=== PATIENT | male | born 1970 | race Hispanic/Latino ===

== ENCOUNTER 2017-10-06 01:15 | Emergency (ER) | payer BC, SELFPAY ==
[2017-10-06] MEDS ORDERED: METHYLPREDNISOLONE 125 MG INJ ONE (01:49)
[2017-10-06] MEDS ORDERED: FAMOTIDINE 20 MG/2 ML VIAL IV ONE (01:50)
[2017-10-06] MEDS ORDERED: DIPHENHYDRAMINE 50 MG/ML VIAL ONE (01:50)
--- NOTE | 2017-10-06 02:15 | ER ---
Nurse's Notes [facility] Name: Torrey Rodriguez Age: 47 yrs Sex: Male : 1970 Arrival Date: 10/06/2017 Time: 01:18 Bed 17 Private MD: Apple Lozano Diagnosis: Urticaria Presentation: 10/06 01:26 Presenting complaint: Patient states: "I am having an allergic reaction, I have this bs1 rash all over that started around 10pm last night and I took Benadryl about 40 minutes ago.". Transition of care: patient was not received from another setting of care. Onset: The symptoms/episode began/occurred last night. Anaphylaxis evaluation, no signs or symptoms of anaphylaxis were noted. Onset of symptoms was October 05, 2017 at 22:00. Risk Assessment: Do you want to hurt yourself or someone else? Patient reports no desire to harm self or others. Initial Sepsis Screen: Does the patient meet any 2 criteria? No. Patient's initial sepsis screen is negative. Does the patient have a suspected source of infection? No. Patient's initial sepsis screen is negative. Care prior to arrival: Medication(s) given: Benadryl capsules. 01:26 Method Of Arrival: Ambulatory bs1 01:26 Acuity: JULIAN 3 bs1 Historical: - Allergies: :29 No Known Allergies; bs1 - Home Meds: 01:29 None [Active]; bs1 - PMHx: 01:29 Hernia; bs1 - PSHx: 01:29 Hernia repair; bs1 - Immunization history:: Adult Immunizations up to date. - Social history:: Smoking status: Patient/guardian denies using tobacco. - Ebola Screening: : Patient negative for fever greater than or equal to 101.5 degrees Fahrenheit, and additional compatible Ebola Virus Disease symptoms Patient denies exposure to infectious person. Screenin:34 Abuse screen: Denies threats or abuse. Denies injuries from another. Nutritional bs1 screening: No deficits noted. Tuberculosis screening: No symptoms or risk factors identified. Fall Risk None identified. Assessment: 01:29 General: Appears in no apparent distress. uncomfortable, Behavior is calm, cooperative, bs1 appropriate for age. Pain: Denies pain. Neuro: Level of Consciousness is awake, alert, obeys commands, Oriented to person, place, time, situation, Appropriate for age Reports dizziness. Cardiovascular: Denies chest pain, palpitations, Heart tones S1 S2 present Capillary refill < 3 seconds Patient's skin is warm and dry. Respiratory: Airway is patent Trachea midline Respiratory effort is even, unlabored, Respiratory pattern is regular, symmetrical, Breath sounds are clear bilaterally. GI: No signs and/or symptoms were reported involving the gastrointestinal system. : No signs and/or symptoms were reported regarding the genitourinary system. EENT: No signs and/or symptoms were reported regarding the EENT system. Derm: Rash noted that is urticaria, on generalized Reports itching. Musculoskeletal: Circulation, motion, and sensation intact. Capillary refill < 3 seconds, Range of motion: intact in all extremities. 02:30 Reassessment: Patient appears in no apparent distress at this time. Patient and/or bs1 family updated on plan of care and expected duration. Pain level reassessed. Patient is alert, oriented x 3, equal unlabored respirations, skin warm/dry/pink. Informed of DC instructions. Patient states understanding of of POC Patient denies pain at this time. Patient states feeling better. Patient states symptoms have improved. Vital Signs: 01:31 BP 102 / 74; Pulse 77; Resp 16; Temp 97.8(O); Pulse Ox 94% on R/A; Weight 81.65 kg; bs1 Height 5 ft. 7 in. (170.18 cm); Pain 0/10; 02:30 BP 100 / 72; Pulse 73; Resp 17; Temp 98; Pulse Ox 100% on R/A; Pain 0/10; bs1 01:31 Body Mass Index 28.19 (81.65 kg, 170.18 cm) bs1 ED Course: 01:18 Patient arrived in ED. ds1 01:18 Apple Lozano is Private Physician. ds1 01:26 Corinne Melgar, MARITZA is Primary Nurse. bs1 01:29 Triage completed. bs1 01:30 [facility] pm1 01:30 Danis Villeda MD is Attending Physician. pm1 01:34 Patient has correct armband on for positive identification. Bed in low position. Call bs1 light in reach. Side rails up X 1. Pulse ox on. NIBP on. 01:34 Arm band placed on right wrist. bs1 01:45 Inserted saline lock: 22 gauge in right forearm, using aseptic technique. bs1 02:38 No provider procedures requiring assistance completed. bs1 02:39 IV discontinued, bleeding controlled, No redness/swelling at site. Pressure dressing bs1 applied. Administered Medications: 01:52 Drug: SOLU-Medrol 125 mg Route: IVP; Site: right forearm; bs1 02:41 Follow up: Response: No adverse reaction bs1 01:52 Drug: Benadryl 25 mg Route: IVP; Site: right forearm; bs1 02:41 Follow up: Response: No adverse reaction bs1 01:53 Drug: Pepcid 20 mg Route: IVP; Site: right forearm; bs1 02:41 Follow up: Response: No adverse reaction bs1 Outcome: 02:14 Discharge ordered by MD. pm1 02:38 Discharged to home ambulatory, with significant other. bs1 02:38 Condition: stable 02:38 Discharge instructions given to patient, Instructed on discharge instructions, follow up and referral plans. medication usage, Demonstrated understanding of instructions, follow-up care, medications, Prescriptions given X 3. 02:41 Patient left the ED. bs1 Signatures: Cassandra Marrufo ds1 Chad Zavaleta NP [employer] pm1 Corinne Melgar, MARITZA RN bs1
--- NOTE | 2017-10-06 02:15 | EDPHYS ---
Physician Documentation [facility] Name: Torrey Rodriguez Age: 47 yrs Sex: Male : 1970 Arrival Date: 10/06/2017 Time: 01:18 Bed 17 Private MD: Apple Lozano ED Physician Danis Villeda HPI: 10/06 01:38 This 47 yrs old Male presents to ER via Ambulatory with complaints of Allergic pm1 Reaction. 01:38 The patient presents with rash, that is diffuse. Onset: The symptoms/episode pm1 began/occurred last night, at 22:00. Associated signs and symptoms: Pertinent positives: rash, sore throat, Pertinent negatives: chest pain, dysphagia, fever, shortness of breath, vomiting. Possible causes: At home the patient or guardian has treated the symptoms with Benadryl. Severity of symptoms: in the emergency department the symptoms are unchanged. The patient has not experienced similar symptoms in the past. The patient has not recently seen a physician. Patient was at a restaurant trying different foods and started getting a rash. Took a Benadryl at home without any improvement. Historical: - Allergies: 01:29 No Known Allergies; bs1 - Home Meds: 01:29 None [Active]; bs1 - PMHx: 01:29 Hernia; bs1 - PSHx: 01:29 Hernia repair; bs1 - Immunization history:: Adult Immunizations up to date. - Social history:: Smoking status: Patient/guardian denies using tobacco. - Ebola Screening: : Patient negative for fever greater than or equal to 101.5 degrees Fahrenheit, and additional compatible Ebola Virus Disease symptoms Patient denies exposure to infectious person. ROS: 01:38 Constitutional: Negative for fever, chills, and weight loss, Eyes: Negative for injury, pm1 pain, redness, and discharge. 01:38 Neck: Negative for injury, pain, and swelling, Cardiovascular: Negative for chest pain, palpitations, and edema, Respiratory: Negative for shortness of breath, cough, wheezing, and pleuritic chest pain, Abdomen/GI: Negative for abdominal pain, nausea, vomiting, diarrhea, and constipation, Back: Negative for injury and pain, : Negative for injury, bleeding, discharge, and swelling, MS/Extremity: Negative for injury and deformity. 01:38 Neuro: Negative for headache, weakness, numbness, tingling, and seizure. 01:38 ENT: Positive for sore throat, Negative for ear pain. 01:38 Skin: Positive for rash, diffusely. Exam: 01:38 Constitutional: This is a well developed, well nourished patient who is awake, alert, pm1 and in no acute distress. Head/Face: Normocephalic, atraumatic. Eyes: Pupils equal round and reactive to light, extra-ocular motions intact. Lids and lashes normal. Conjunctiva and sclera are non-icteric and not injected. Cornea within normal limits. Periorbital areas with no swelling, redness, or edema. ENT: Nares patent. No nasal discharge, no septal abnormalities noted. Tympanic membranes are normal and external auditory canals are clear. Oropharynx with no redness, swelling, or masses, exudates, or evidence of obstruction, uvula midline. Mucous membranes moist. Neck: Trachea midline, no thyromegaly or masses palpated, and no cervical lymphadenopathy. Supple, full range of motion without nuchal rigidity, or vertebral point tenderness. No Meningismus. Chest/axilla: Normal chest wall appearance and motion. Nontender with no deformity. No lesions are appreciated. Cardiovascular: Regular rate and rhythm with a normal S1 and S2. No gallops, murmurs, or rubs. Normal PMI, no JVD. No pulse deficits. Respiratory: Lungs have equal breath sounds bilaterally, clear to auscultation and percussion. No rales, rhonchi or wheezes noted. No increased work of breathing, no retractions or nasal flaring. Abdomen/GI: Soft, non-tender, with normal bowel sounds. No distension or tympany. No guarding or rebound. No evidence of tenderness throughout. Back: No spinal tenderness. No costovertebral tenderness. Full range of motion. 01:38 Skin: consistent with urticaria, and is diffusely located. 01:38 Neuro: Orientation: is normal, Motor: moves all fours. Vital Signs: 01:31 BP 102 / 74; Pulse 77; Resp 16; Temp 97.8(O); Pulse Ox 94% on R/A; Weight 81.65 kg; bs1 Height 5 ft. 7 in. (170.18 cm); Pain 0/10; 02:30 BP 100 / 72; Pulse 73; Resp 17; Temp 98; Pulse Ox 100% on R/A; Pain 0/10; bs1 01:31 Body Mass Index 28.19 (81.65 kg, 170.18 cm) bs1 MDM: 01:33 Patient medically screened. pm1 01:41 Data reviewed: vital signs. pm1 02:14 Counseling: I had a detailed discussion with the patient and/or guardian regarding: the pm1 historical points, exam findings, and any diagnostic results supporting the discharge/admit diagnosis, the need for outpatient follow up, for definitive care, an allergy/medical record retrieval specialist, to return to the emergency department if symptoms worsen or persist or if there are any questions or concerns that arise at home. 02:15 ED course: Patient's rash markedly improved and sore throat resolved. pm1 10/06 01:37 Order name: IV Saline Lock; Complete Time: 01:53 pm1 Administered Medications: 01:52 Drug: SOLU-Medrol 125 mg Route: IVP; Site: right forearm; bs1 02:41 Follow up: Response: No adverse reaction bs1 01:52 Drug: Benadryl 25 mg Route: IVP; Site: right forearm; bs1 02:41 Follow up: Response: No adverse reaction bs1 01:53 Drug: Pepcid 20 mg Route: IVP; Site: right forearm; bs1 02:41 Follow up: Response: No adverse reaction bs1 Disposition: 04:24 Co-signature as Attending Physician, Danis Villeda MD I agree with the assessment and ps1 plan of care. Disposition: 10/06/17 02:14 Discharged to Home. Impression: Urticaria. - Condition is Stable. - Discharge Instructions: Food Allergy, Hives. - Prescriptions for Benadryl 25 mg Oral Capsule - take 1 capsule by ORAL route every 6 hours As needed; 30 tablet. Pepcid 20 mg Oral Tablet - take 1 tablet by ORAL route every 12 hours for 5 days; 10 tablet. Prednisone 20 mg Oral Tablet - take 3 tablet by ORAL route once daily for 5 days; 15 tablet. - Medication Reconciliation Form, Thank You Letter, Antibiotic Education, Prescription Opioid Use form. - Follow up: Emergency Department; When: As needed; Reason: Worsening of condition. Follow up: Private Physician; When: 2 - 3 days; Reason: Further diagnostic work-up, Recheck today's complaints, Continuance of care, Re-evaluation by your physician. - Problem is new. - Symptoms have improved. Signatures: Chad Zavaleta, PLATE COLORER PLATE COLORER pm1 Danis Villeda MD MD ps1 Salazar, Brittany RN RN bs1 Corrections: (The following items were deleted from the chart) 02:41 02:14 10/06/2017 02:14 Discharged to Home. Impression: Urticaria. Condition is Stable. bs1 Forms are Medication Reconciliation Form, Thank You Letter, Antibiotic Education, Prescription Opioid Use. Follow up: Emergency Department; When: As needed; Reason: Worsening of condition. Follow up: Private Physician; When: 2 - 3 days; Reason: Further diagnostic work-up, Recheck today's complaints, Continuance of care, Re-evaluation by your physician. Problem is new. Symptoms have improved. pm1
== END 2017-10-06 02:41 | disposition home or self-care (01) ==
LOC: ER 01:15
DX: L50.9 Urticaria, unspecified (principal)
CPT/HCPCS: 96374; 96375; 99284; J2930